=== PATIENT | male | born 1950 | race Caucasian/White ===

== ENCOUNTER 2023-07-04 11:06 | Emergency (ER) | payer BC, OTHER ==
[~2023-07-04] VITALS: Ht 170.2 cm; Wt 108.9 kg
[2023-07-04 11:35] VITALS: BP 154/91; PULSE 69; RESP 18; TEMP 97.7; O2SAT 96
[2023-07-04 13:31] VITALS: BP 145/91; PULSE 65; RESP 18; TEMP 97.7; O2SAT 96
== END 2023-07-04 13:31 | disposition home or self-care (01) ==
LOC: MED 11:06
DX: S09.90XA Unspecified injury of head, initial encounter (principal); H54.62 Unqualified visual loss, left eye, normal vision right eye; W19.XXXA Unspecified fall, initial encounter; Y93.89 Activity, other specified; Y92.89 Other specified places as the place of occurrence of the external cause; Y99.8 Other external cause status
CPT/HCPCS: 70450; 99284